=== PATIENT | female | born 1985 | race Caucasian/White ===

== ENCOUNTER 2017-01-27 19:12 | Emergency (ER) | payer OTHER ==
[~2017-01-27] VITALS: Ht 170.2 cm; Wt 76.7 kg
[~2017-01-27 19:12] MED LIST: ALDACTONE25 MG PO; BENADRYL25 MG PO; BENADRYL50 MG PO; CIPROFLOXACIN H10 ML LEFT EYE; CLEOCIN300 MG PO; CLINDAMYCIN HC150 MG PO; CLINDAMYCIN HC300 MG PO; CLONAZEPAM1 MG PO; CYMBALTA20 MG PO; DOXYCYCLINE HY100 MG PO; FOCALIN XR20 MG PO; Feosol PO; GLUCOPHAGE1000 MG PO; KEFLEX500 MG PO; KLONOPIN2 MG PO; LISINOPRIL20 MG PO; METFORMIN HCL500 MG PO; MOTRIN800 MG PO; Motrin PO; NAPROSYN375 MG PO; NAPROSYN500 MG PO; NORCO 5/3251 TABLET PO; PAXIL40 MG PO; PEN-VEE K,VEET500 MG PO; PEPCID20 MG PO; PREDNISONE10 MG PO; PREDNISONE20 MG PO; PREDNISONE50 MG PO; PREFERA-OB P1 TABLET PO; PROVENTIL,VENTOL2 MG IH; PROZAC40 MG PO; Percocet 5/325,Endoc PO; SUBOXONE 12 MG1 EACH SL; SUBUTEX8 MG SL; ULTRAM50 MG PO; VIBRAMYCIN100 MG PO; VICODIN 5-3001 EACH PO; Xanax PO
[2017-01-27 20:02] LABS: HEMATOCRIT 34.8 % (36.0-46.0); MCHC 31.6 G/DL (30.0-36.0); MCV 79.1 FL (83-99); MEAN PLAT.VOLUME 9.6 uM^3 (9.5-12.4); PLATELET COUNT 417 K/uL (156-360); RBC DIS.WIDTH-CV 17.4 % (11.8-14.6); RBC DIS.WIDTH-SD 50.2 % (39-53); WHITE BLOOD COUNT 11.1 K/uL (4.1-10.2)
[2017-01-27 20:06] LABS: ADD MIUA? NO; BILIRUBIN NEGATIVE; BLOOD NEGATIVE; COLOR YELLOW ((YELLOW)); GLUCOSE (STRIP) NEGATIVE; KETONES NEGATIVE; LEUKOCYTES NEGATIVE; NITRITE NEGATIVE; PROTEIN (STRIP) NEGATIVE; SPECIFIC GRAVITY 1.012 (1.000-1.030); UCUL ADDED? NO; UROBILINOGEN 0.2 MG/DL (0.2-1.0)
[2017-01-28 01:19] VITALS: BP 126/82
[2017-01-28 11:42] LABS: CHLAMYDIA TRACHOMATIS NEGATIVE; NEISSERIA GONORRHOEAE NEGATIVE
== END 2017-01-28 01:20 | disposition home or self-care (01) ==
LOC: EME 19:12
PROVIDERS: Physician Assistant
DX: O26.891 Other specified pregnancy related conditions, first trimester (principal); R10.84 Generalized abdominal pain; O99.331 Smoking (tobacco) complicating pregnancy, first trimester; F17.200 Nicotine dependence, unspecified, uncomplicated
CPT/HCPCS: 76801; 81003; 84702; 85027; 87210; 87491; 87591; 99281; 99284

== ENCOUNTER 2017-02-10 16:28 | Emergency (ER) | payer OTHER ==
[~2017-02-10] VITALS: Ht 170.2 cm; Wt 79.8 kg
[2017-02-10] MEDS ORDERED: CLINDAMYCIN HC150 MG PO (17:25)
[2017-02-10 17:43] VITALS: BP 127/74
== END 2017-02-10 17:55 | disposition home or self-care (01) ==
LOC: RME 16:28 → EME 16:28 → RME 17:55
PROC: 0H9HXZZ Drainage of Right Upper Leg Skin, External Approach (ICD-10-PCS; principal; 2017-02-10)
DX: O99.711 Diseases of the skin and subcutaneous tissue complicating pregnancy, first trimester (principal); L02.415 Cutaneous abscess of right lower limb; L03.115 Cellulitis of right lower limb; Z3A.00 Weeks of gestation of pregnancy not specified; Z88.2 Allergy status to sulfonamides; F17.200 Nicotine dependence, unspecified, uncomplicated
CPT/HCPCS: 99281; 99283

== ENCOUNTER → 2017-02-12 15:21 | Emergency (ER) | payer OTHER ==
[~2017-02-12] VITALS: Ht 170.2 cm; Wt 79.0 kg
[~2017-02-12 15:21] MED LIST changes: +ERYTHROMYC1 APPLICAT LEFT EYE
[2017-02-12 15:42] VITALS: BP 113/83
== END | disposition left against medical advice (07) ==
LOC: EME 15:21
DX: O26.891 Other specified pregnancy related conditions, first trimester (principal); H53.8 Other visual disturbances; Z53.21 Procedure and treatment not carried out due to patient leaving prior to being seen by health care provider

== ENCOUNTER 2017-02-15 13:00 | Emergency (ER) | payer OTHER ==
[~2017-02-15] VITALS: Ht 170.2 cm; Wt 79.2 kg
[~2017-02-15 13:00] MED LIST changes: -ERYTHROMYC1 APPLICAT LEFT EYE
[2017-02-15] MEDS ORDERED: ERYTHROMYC1 APPLICAT LEFT EYE (14:24)
[2017-02-15 14:37] VITALS: BP 118/70
== END 2017-02-15 14:37 | disposition home or self-care (01) ==
LOC: EME 13:00
DX: H16.002 Unspecified corneal ulcer, left eye (principal); F17.200 Nicotine dependence, unspecified, uncomplicated; Z88.2 Allergy status to sulfonamides
CPT/HCPCS: 99281; 99283

== ENCOUNTER 2017-02-21 09:34 | Emergency (ER) | payer OTHER ==
[~2017-02-21] VITALS: Ht 170.2 cm; Wt 80.5 kg
[~2017-02-21 09:34] MED LIST changes: +ERYTHROMYC1 APPLICAT LEFT EYE
[2017-02-21 11:17] VITALS: BP 108/61
== END 2017-02-21 11:17 | disposition home or self-care (01) ==
LOC: EXP 09:34 → EME 09:34 → EXP 11:17
DX: H16.002 Unspecified corneal ulcer, left eye (principal); Z87.891 Personal history of nicotine dependence
CPT/HCPCS: 99281; 99283

== ENCOUNTER 2017-03-01 11:19 | Emergency (ER) | payer OTHER ==
[~2017-03-01] VITALS: Ht 170.2 cm; Wt 83.8 kg
[2017-03-01 12:22] LABS: HEMATOCRIT 27.7 % (36.0-46.0); MCH 26.3 PG (29.0-34.0); MCHC 32.5 G/DL (30.0-36.0); MEAN PLAT.VOLUME 9.9 uM^3 (9.5-12.4); PLATELET COUNT 239 K/uL (156-360); RBC DIS.WIDTH-CV 17.1 % (11.8-14.6); RBC DIS.WIDTH-SD 50.7 % (39-53); RED BLOOD COUNT 3.42 M/uL (3.80-5.20); WHITE BLOOD COUNT 8.5 K/uL (4.1-10.2)
[2017-03-01 12:36] LABS: ADD MIUA? YES; BILIRUBIN NEGATIVE; BLOOD NEGATIVE; COLOR AMBER ((YELLOW)); GLUCOSE (STRIP) NEGATIVE; KETONES 5; LEUKOCYTES NEGATIVE; NITRITE NEGATIVE; PROTEIN (STRIP) 30; UROBILINOGEN 0.2 MG/DL (0.2-1.0)
[2017-03-01 12:37] LABS: CHLORIDE 104 mEq/L (99-109); POTASSIUM 3.9 mEq/L (3.7-5.4); SODIUM 136 mEq/L (136-147)
[2017-03-01 12:39] LABS: GLUCOSE 85 mg/dL (70-99)
[2017-03-01 12:40] LABS: ANION GAP 8 MEQ/L (2-14)
[2017-03-01 12:41] LABS: TOTAL BILIRUBIN 0.2 mg/dL (0.0-1.0)
[2017-03-01 12:43] LABS: ALKALINE PHOSPHATASE 36 IU/L (3-129); GFR ESTIMATE (CALCULATED) > 59 mL/min/
[2017-03-01 12:44] LABS: UREA NITROGEN (BUN) 6 mg/dL (9-23)
[2017-03-01 12:46] LABS: BACTERIA RARE /HPF; EPITHELIAL CELLS RARE /HPF; MUCUS TRACE /LPF; RED BLOOD CELLS 0-5 /HPF (0-5); UCUL ADDED? NO; WHITE BLOOD CELLS 0-5 /HPF (0-5)
[2017-03-01 12:46] LABS: LIPASE 18 U/L (1.0-51.0)
[2017-03-01 14:15] LABS: QUANTITATIVE HCG 73091.4 MIU/ML
[2017-03-01 14:40] VITALS: BP 129/70
== END 2017-03-01 14:50 | disposition home or self-care (01) ==
LOC: EME 11:19
PROVIDERS: Emergency Medicine
DX: O26.891 Other specified pregnancy related conditions, first trimester (principal); R10.9 Unspecified abdominal pain; Z3A.08 8 weeks gestation of pregnancy; O99.331 Smoking (tobacco) complicating pregnancy, first trimester; F17.200 Nicotine dependence, unspecified, uncomplicated
CPT/HCPCS: 80053; 81003; 83690; 84702; 85027; 99281; 99284

== ENCOUNTER 2017-09-27 08:58 | Inpatient (IN) | payer OTHER ==
[2017-09-27] VITALS (8 sets, daily range): BP systolic 106–134; BP diastolic 59–74
[~2017-09-27] VITALS: Ht 170.2 cm; Wt 97.5 kg
[~2017-09-27 08:58] MED LIST changes: +ADDERALL20 MG PO; +BUPRENORPHINE HC8 MG SL; +PRENATAL TABLE1 EAC3 PO
[2017-09-27 10:53] LABS: EOSINOPHIL (%) 1.3 % (0-5); EOSINOPHIL COUNT 0.1 K/uL (0-0.3); HEMATOCRIT 32.3 % (36.0-46.0); IMMATURE GRANULOCYTE (%) 0.7 % (0.0-0.7); IMMATURE GRANULOCYTE COUNT 0.1 K/uL; INSTRUMENT ABS NEUTROPHIL CT 6.8 K/uL; MCH 30.5 PG (29.0-34.0); MCHC 34.4 G/DL (30.0-36.0); MCV 88.7 FL (83-99); MEAN PLAT.VOLUME 10.9 uM^3 (9.5-12.4); MONOCYTE (%) 9.1 % (3-12); NEUTROPHIL (%) 61.9 % (45-76); NEUTROPHIL COUNT 6.8 K/uL (1.8-6.4); PLATELET COUNT 205 K/uL (156-360); RBC DIS.WIDTH-CV 13.5 % (11.8-14.6); RED BLOOD COUNT 3.64 M/uL (3.80-5.20); WHITE BLOOD COUNT 11.1 K/uL (4.1-10.2)
[2017-09-27] MEDS ORDERED: IRON18 MG PO (12:06)
[2017-09-27] MEDS ORDERED: BUSPAR15 MG PO (12:07)
[2017-09-27 13:06] LABS: BARBITUATES QUANT VALUE 0 NG/ML; BENZODIAZEPINES QUANT VALUE 0 NG/ML; BENZODIAZEPINES, URINE SCREEN Negative (200 ng/mL); OPIATES QUANTITATIVE VALUE 0 NG/ML; PHENCYCLIDINE QUANT VALUE 0 NG/ML
[2017-09-27 14:15] LABS: METH RESISTANT S AUREUS PCR POSITIVE (NEGATIVE); PROBE CHECK PASS
[2017-09-28 01:17] VITALS: BP 105/52
[2017-09-28 02:53] VITALS: BP 104/62
[2017-09-28 07:30] VITALS: BP 126/82
[2017-09-28 07:30] LABS: EOSINOPHIL (%) 0.9 % (0-5); EOSINOPHIL COUNT 0.1 K/uL (0-0.3); HEMATOCRIT 28.1 % (36.0-46.0); IMMATURE GRANULOCYTE (%) 0.5 % (0.0-0.7); IMMATURE GRANULOCYTE COUNT 0.1 K/uL; INSTRUMENT ABS NEUTROPHIL CT 7.8 K/uL; LYMPHOCYTE COUNT 2.8 K/uL (1.0-2.8); MCH 29.5 PG (29.0-34.0); MCHC 33.1 G/DL (30.0-36.0); MCV 89.2 FL (83-99); MEAN PLAT.VOLUME 11.4 uM^3 (9.5-12.4); MONOCYTE (%) 8.4 % (3-12); NEUTROPHIL (%) 66.2 % (45-76); NEUTROPHIL COUNT 7.8 K/uL (1.8-6.4); PLATELET COUNT 160 K/uL (156-360); RBC DIS.WIDTH-CV 13.6 % (11.8-14.6); RBC DIS.WIDTH-SD 44.2 % (39-53); RED BLOOD COUNT 3.15 M/uL (3.80-5.20); WHITE BLOOD COUNT 11.7 K/uL (4.1-10.2)
[2017-09-28 11:23] VITALS: BP 106/60
[2017-09-28 19:17] VITALS: BP 145/88
[2017-09-28 21:57] VITALS: BP 122/73
[2017-09-29 07:05] VITALS: BP 135/83
[2017-09-29 11:12] VITALS: BP 126/73
[2017-09-29 13:45] VITALS: BP 132/78
[2017-09-29 20:08] VITALS: BP 114/71
[2017-09-29 23:15] VITALS: BP 119/70
[2017-09-30 08:19] VITALS: BP 152/84
[2017-09-30] MEDS ORDERED: ENDOCET 5-3251 EACH PO (09:12)
[2017-09-30] MEDS ORDERED: IBUPROFEN800 MG PO (09:12)
== END 2017-09-30 11:15 | disposition home or self-care (01) | DRG 765 ==
LOC: 2SOUTH 08:58 → 2WEST 10:04 → 2SOUTH 10:42 → 2WEST 09-30 11:15
PROVIDERS: Obstetrics & Gynecology Obstetrics
PROC: 10D00Z1 Extraction of Products of Conception, Low, Open Approach (ICD-10-PCS; principal; 2017-09-27)
DX: O40.3XX0 Polyhydramnios, third trimester, not applicable or unspecified (principal); O99.324 Drug use complicating childbirth; F12.90 Cannabis use, unspecified, uncomplicated; F11.90 Opioid use, unspecified, uncomplicated; O99.334 Smoking (tobacco) complicating childbirth; F17.200 Nicotine dependence, unspecified, uncomplicated; O99.02 Anemia complicating childbirth; G62.9 Polyneuropathy, unspecified; O34.211 Maternal care for low transverse scar from previous cesarean delivery; O99.824 Streptococcus B carrier state complicating childbirth; N85.8 Other specified noninflammatory disorders of uterus; D50.9 Iron deficiency anemia, unspecified; F41.0 Panic disorder [episodic paroxysmal anxiety]; O99.344 Other mental disorders complicating childbirth; O99.844 Bariatric surgery status complicating childbirth; O99.52 Diseases of the respiratory system complicating childbirth; F90.9 Attention-deficit hyperactivity disorder, unspecified type; Z91.19 Patient's noncompliance with other medical treatment and regimen; Z3A.39 39 weeks gestation of pregnancy; Z37.0 Single live birth; Z82.49 Family history of ischemic heart disease and other diseases of the circulatory system; Z86.32 Personal history of gestational diabetes; Z82.3 Family history of stroke
CPT/HCPCS: 80306 90; 85025; 86850; 86900; 86901; 87641; J0131; J0571; J0690; J1170; J1885; J2250; J2274; J2405; J2590; J3010; J7050; J7120

== ENCOUNTER 2017-10-09 15:38 | Emergency (ER) | payer OTHER ==
[~2017-10-09] VITALS: Ht 170.2 cm; Wt 93.0 kg
[~2017-10-09 15:38] MED LIST changes: +BUSPAR15 MG PO; +ENDOCET 5-3251 EACH PO; +IBUPROFEN800 MG PO; +IRON18 MG PO
[2017-10-09 15:57] LABS: HEMATOCRIT 33.9 % (36.0-46.0); MCHC 32.7 G/DL (30.0-36.0); MCV 91.6 FL (83-99); RBC DIS.WIDTH-CV 13.4 % (11.8-14.6); RBC DIS.WIDTH-SD 45.3 % (39-53); WHITE BLOOD COUNT 9.1 K/uL (4.1-10.2)
[2017-10-09 15:58] LABS: MEAN PLAT.VOLUME 9.2 uM^3 (9.5-12.4); PLATELET COUNT 277 K/uL (156-360)
[2017-10-09 16:06] LABS: CHLORIDE 105 mEq/L (99-109); SODIUM 139 mEq/L (136-147)
[2017-10-09 16:07] LABS: GLUCOSE 103 mg/dL (70-99)
[2017-10-09 16:09] LABS: ANION GAP 10 MEQ/L (2-14)
[2017-10-09 16:11] LABS: GFR ESTIMATE (CALCULATED) > 59 mL/min/
[2017-10-09 16:12] LABS: UREA NITROGEN (BUN) 8 mg/dL (9-23)
[2017-10-09 16:33] LABS: ADD MIUA? YES; BILIRUBIN NEGATIVE; BLOOD SMALL; COLOR AMBER ((YELLOW)); GLUCOSE (STRIP) NEGATIVE; KETONES 5; LEUKOCYTES NEGATIVE; NITRITE NEGATIVE; PROTEIN (STRIP) NEGATIVE; SPECIFIC GRAVITY 1.023 (1.000-1.030)
[2017-10-09 16:38] LABS: BACTERIA NONE SEEN /HPF; EPITHELIAL CELLS RARE /HPF; MUCUS TRACE /LPF; RED BLOOD CELLS 0-5 /HPF (0-5); UCUL ADDED? NO; WHITE BLOOD CELLS 0-5 /HPF (0-5)
[2017-10-09] MEDS ORDERED: FIORICET 50-301 EAC1 PO (17:55)
[2017-10-09 18:30] VITALS: BP 123/76
== END 2017-10-09 19:42 | disposition home or self-care (01) ==
LOC: EME 15:38
DX: G44.209 Tension-type headache, unspecified, not intractable (principal); F17.200 Nicotine dependence, unspecified, uncomplicated; Z98.84 Bariatric surgery status
CPT/HCPCS: 80048; 81003; 85027; 99281; 99285; J0780; J1885; J7030